=== PATIENT | female | born 1930 | race Asian ===

== ENCOUNTER 2016-08-16 08:39 | Outpatient (CLI) | payer OTHER, MEDICAID ==
[2016-08-16] MEDS ORDERED: GADOPENTETATE DIMEGLUMINE 15 ML VIAL IV ONE (09:37)
[2016-08-16] MEDS ORDERED: GADOPENTETATE DIMEGLUMINE 5 ML VIAL IV ONE (09:37)
== END 2016-08-16 20:33 | disposition home or self-care (01) ==
LOC: SMI 08:39
DX: N28.9 Disorder of kidney and ureter, unspecified (principal); N28.1 Cyst of kidney, acquired
CPT/HCPCS: 72195; A9579 ×2; C8902